=== PATIENT | female | born 1970 | race Caucasian/White ===

== ENCOUNTER 2019-05-01 16:49 | Emergency (ER) | payer OTHER ==
[~2019-05-01] VITALS: Ht 160 cm; Wt 87.4 kg
[~2019-05-01 16:49] MED LIST: ADVAIR; SINGULAIR
[2019-05-01 16:57] VITALS: Ht 160 cm; Wt 87.4 kg
[2019-05-01] MEDS ORDERED: SOD CHLORIDE 0.9% 1,000 ML IV STA (20:43)
[2019-05-01] MEDS ORDERED: ONDANSETRON 4 MG INJ IV STA (20:43)
[2019-05-01] MEDS ORDERED: morphine 4 MG/ML VIAL IV STA (20:43)
--- NOTE | 2019-05-01 20:51 | ERD ---
ER Documentation Chief Complaint Chief Complaint left dental pain x 2 days, HPI 48-year-old female presents with complaint of left-sided face pain since last Tuesday. States that the pain has gotten worse since then in addition a mass is formed in her left cheek area. She states she went to her doctor 2 days ago and she was prescribed clindamycin for which is been take for last 2 days. In addition patient states she has been having a headache. States that the pain i in her cheek has gotten unbearable. States she is been taking ibuprofen for pain, last dose was at 6 PM but it has not been helping. ROS All systems reviewed and are negative except as per history of present illness. Medications Home Meds Active Scripts Ibuprofen* (Motrin*) 600 Mg Tab, 600 MG PO Q6, #30 TAB Prov:RACHID CARTAGENA 05/02/19 Naloxone Hcl 1mg/1mL 2mL syr (Narcan 1mg/1mL 2mL syr) 1 Mg/Ml Soln, 1 ML NS .Q2- 3 MIN PRN for OPIOID OVERDOSE, #2 SYR Dispense with mucosal atomizer devices. Using mucosal atomizer devices spray 1mL into each nostril. Repeat after 2-3 minutes if no or minimal response. Prov:RACHID CARTAGENA 05/02/19 Oxycodone HCl/Acetaminophen (Percocet 5-325 mg Tablet) 1 Each Tablet, 1-2 EACH PO Q6, #20 TAB Prov:RACHID CARTAGENA 05/02/19 Clindamycin Hcl* (Clindamycin Hcl*) 300 Mg Capsule, 300 MG PO QID for 7 Days, CAP Prov:RACHID CARTAGENA 05/02/19 Reported Medications [Singulair] No Conflict Check 09/03/11 [Advair] No Conflict Check 09/03/11 Allergies Allergies: Coded Allergies: No Known Allergy (Verified , 04/19/12) PMhx/Soc Medical and Surgical Hx: pt denies Medical Hx, pt denies Surgical Hx History of Surgery: Yes (ABD, LEG) Anesthesia Reaction: No Hx Neurological Disorder: No Hx Respiratory Disorders: Yes (ASTHMA) Hx Cardiac Disorders: No Hx Psychiatric Problems: Yes (DEPRESSION) Hx Miscellaneous Medical Probl: No Hx Alcohol Use: No Hx Substance Use: No Hx Tobacco Use: No Smoking Status: Never smoker FmHx Family History: No diabetes, No coronary disease, No other Physical Exam Vitals Vital Signs Date Temp Pulse Resp B/P (MAP) Pulse Ox O2 O2 Flow FiO2 Time Delivery Rate 05/02/19 98.0 78 16 164/91 96 Room Air 01:16 (115) 05/01/19 98.9 71 18 194/94 98 16:57 (127) Physical Exam Const: No acute distress Head: Atraumatic. Approximately 6 cm fluctuant mass noted on the left cheek with no erythema or underlying bony deformity noted. It is tender to palpation. Teeth are all intact with no periapical abscesses noted. Eyes: Normal Conjunctiva ENT: Normal External Ears, Nose and Mouth. Neck: Full range of motion. No meningismus. Resp: Clear to auscultation bilaterally Cardio: Regular rate and rhythm, no murmurs Abd: Soft, non tender, non distended. Normal bowel sounds Skin: No petechiae or rashes Back: No midline or flank tenderness Ext: No cyanosis, or edema Neur: Awake and alert Psych: Normal Mood and Affect Result Diagram: 05/01/19210405/01/192104 Results 24 hrs Laboratory Tests Test 05/01/19 21:05 05/01/19 21:12 White Blood Count 15.1 10^3/ul Red Blood Count 4.89 10^6/ul Hemoglobin 13.5 g/dl Hematocrit 42.3 % Mean Corpuscular Volume 86.5 fl Mean Corpuscular Hemoglobin 27.6 pg Mean Corpuscular Hemoglobin Concent 31.9 g/dl Red Cell Distribution Width 14.0 % Platelet Count 282 10^3/UL Mean Platelet Volume 8.9 fl Immature Granulocytes % 0.400 % Neutrophils % 81.6 % Lymphocytes % 10.4 % Monocytes % 5.7 % Eosinophils % 1.2 % Basophils % 0.7 % Nucleated Red Blood Cells % 0.0 /100WBC Immature Granulocytes # 0.060 10^3/ul Neutrophils # 12.4 10^3/ul Lymphocytes # 1.6 10^3/ul Monocytes # 0.9 10^3/ul Eosinophils # 0.2 10^3/ul Basophils # 0.1 10^3/ul Nucleated Red Blood Cells # 0.0 10^3/ul Sodium Level 140 mmol/L Potassium Level 4.1 mmol/L Chloride Level 102 mmol/L Carbon Dioxide Level 26 mmol/L Anion Gap 12 Blood Urea Nitrogen 6 mg/dl Creatinine 0.56 mg/dl Est Glomerular Filtrat Rate mL/min > 60 mL/min Glucose Level 132 mg/dl Calcium Level 9.7 mg/dl Total Bilirubin 0.8 mg/dl Direct Bilirubin 0.00 mg/dl Indirect Bilirubin 0.8 mg/dl Aspartate Amino Transf (AST/SGOT) 226 IU/L Alanine Aminotransferase (ALT/SGPT) 153 IU/L Alkaline Phosphatase 89 IU/L Total Protein 8.5 g/dl Albumin 4.5 g/dl Globulin 4.00 g/dl Albumin/Globulin Ratio 1.12 POC Beta HCG, Qualitative NEGATIVE Current Medications Medications Dose Sig/Renata Start Time Status Last (Trade) Ordered Route PRN Stop Time Admin Dose Reason Admin Sodium 1,000 ml @ Q1H STAT 05/01/19 DC 05/01/19 Chloride 1,000 mls/hr IV 20:43 21:12 05/01/19 21:42 Morphine 4 mg ONCE STAT 05/01/19 DC 05/01/19 Sulfate IV 20:43 21:12 (morphine) 05/01/19 20:48 Ondansetron 4 mg ONCE STAT 05/01/19 DC 05/01/19 HCl (Zofran IV 20:43 21:12 Inj) 05/01/19 20:48 IV Flush 10 ml STK-MED 05/01/19 DC 05/01/19 (NS 10 ml) ONCE .ROUTE :30 22:09 05/01/19 21:31 Sodium 100 ml @ ud STK-MED 05/01/19 DC 05/01/19 Chloride ONCE .ROUTE 21:30 22:09 05/01/19 21:31 Iohexol 150 ml STK-MED 05/01/19 DC 05/01/19 (Omnipaque ONCE .ROUTE 21:30 22:10 300mg/ ml) 05/01/19 21:31 Piperacillin 100 ml @ ONCE ONCE 05/02/19 DC 05/02/19 Sod/ 200 mls/hr IVPB 00:00 00:31 Tazobactam 05/02/19 00:29 Sod Procedures/MDM DIAGNOSTIC IMAGING REPORT Patient: GALO MURCIA : 1970 Age: 48 Sex: F MR #: [id number] DOS: 05/01/19 2043 Ordering MD: RACHID CARTAGENA Location: [facility] Room/Bed: PROCEDURE: CT facial bones with contrast CLINICAL INDICATION: Left facial mass from dental work TECHNIQUE: A CT of the facial bones was performed on a GE 64-slice CT scanner utilizing high-resolution axial images. Sagittal, coronal, and multiplanar reformatted images were made. Additionally, 3-D reformatted images were made. 90 cc of Isovue 300 contrast was injected intravenously. The CTDIvol is 53.42 mGy and the DLP is 884.87 mGycm. One or more the following dose reduction techniques were utilized: Automated exposure control, adjustment of the mA/ or kV according to patient's size, or use of iterative reconstruction technique. DICOM images are available for review. COMPARISON: None. FINDINGS: Images demonstrate limited visualization of the oral cavity secondary to extensive metallic artifact from dilatation. There is swelling and diffuse fat stranding of the left lower facial soft tissues at the level of the mandible with extensive soft tissue density along the left mandibular body, however no enhancing fluid collection is visualized. The underline left mandible and maxilla are normal in appearance. Images of the right posterior maxilla demonstrate an expansile hypodense mass extending into the base of the right maxillary sinus which measures 1.9 by 1.7 cm with erosion and expansion of the posterior lateral maxillary wall. The orbits, as visualized, appear intact. the mucosal surfaces of the nasopharynx are unremarkable. The oropharynx demonstrate mild calcifications within the palatine tonsils. The visualized hypopharynx and larynx are unremarkable. The submandibular and parotid glands are symmetric. The visualized paranasal sinuses are clear. IMPRESSION: Contrast-enhanced CT of the face demonstrates extensive left lower facial soft tissue swelling and fat stranding with soft tissue density along the left mandible which likely represents a phlegmon however no abscess is visualized. 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 RPTAT:HAGL Physician Matt Date Time Electronically viewed and signed by Physician Matt on 05/01/2019 22:42 RL/ CC: RACHID CARTAGENA [phone] MDM: Patient presentation is consistent with phlegmon on the left side of the face, possible abscess. I discussed the case with my supervising physician Dr. Rosa and he stated patient should be given Zosyn IV in the ER and discharged with clindamycin. To note patient was previously prescribed and was taking an adequate dose of clindamycin [address] Rosa did say the patient was fit for discharge at this time with instructions to follow-up with dentist in the next day for tooth removal as patient's infection in the face is probably as result of spread of infection from the tooth. Patient presentation is not consistent with sepsis. In addition I have low suspicion for bacteremia, spread of infection to brain or brain abscess, or any other emergent condition. Patient was given strict instructions to return to ER for worsening symptoms including worsening of infection, worsening pain, fevers, chills, inability to get into the dentist tomorrow, or noticing mass in the face getting larger. At this time, patient is stable for discharge and outpatient management. I have instructed the patient to follow-up with his/her primary care physician in 1-2 days as well as dentist tomorrow. I have discussed with the patient the possibility of needing to see a specialist for further workup and imaging studies if symptoms persist. I have instructed the patient to promptly return to the ER for any new or worsening symptoms including but not limited to increased pain, fever, nausea, vomiting, weakness or LOC. The patient and/or family expressed understanding of and agreement with this plan. All questions were answered. Home care instructions were provided. DISCLAIMER: Inadvertent spelling and grammatical errors are likely due to EHR/dictation software use and do not reflect on the overall quality of patient care. Also, please note that the electronic time recorded on this note does not necessarily reflect the actual time of the patient encounter. Departure Diagnosis: Primary Impression: Abscess Additional Impression: Tooth disease Condition: Stable RACHID CARTAGENA May 01, 2019 20:51
[2019-05-01] MEDS ORDERED: IOHEXOL 300MG/ML 150 ML BTL ONE (21:30)
[2019-05-01] MEDS ORDERED: SOD CHLORIDE 0.9% 100 ML ONE (21:30)
[2019-05-02] MEDS ORDERED: PIPER-TAZO 3.375 GM IV (PMX) 100 ML IVPB ONE
[2019-05-02] MEDS ORDERED: CLIN300C10 PO (00:14)
[2019-05-02] MEDS ORDERED: IBUP-1542 PO (00:14)
[2019-05-02] MEDS ORDERED: OXYC-279 PO (00:14)
[2019-05-02] MEDS ORDERED: NAR2I NS (00:14)
[2019-05-02 01:16] VITALS: BP 164/91; PULSE 78; RESP 16
== END 2019-05-02 01:19 | disposition home or self-care (01) ==
LOC: FTE 16:49
DX: K04.7 Periapical abscess without sinus (principal); J45.909 Unspecified asthma, uncomplicated; R51 Headache
CPT/HCPCS: 70450; 70486; 80053; 81025; 85025; J2270; J2405; J2543; J7030; Q9967; Z7610; 96361; 96365; 96375